=== PATIENT | male | born 2000 | race Caucasian/White ===

== ENCOUNTER 2020-03-10 15:28 | Emergency (ER) | payer OTHER ==
[~2020-03-10] VITALS: Ht 177.8 cm; Wt 70.8 kg
[2020-03-10 15:55] VITALS: BP 129/78; Ht 177.8 cm; Wt 70.8 kg
== END 2020-03-10 20:08 | disposition left against medical advice (07) ==
LOC: ED 15:28
DX: Z53.21 Procedure and treatment not carried out due to patient leaving prior to being seen by health care provider (principal)